=== PATIENT | male | born 2000 | race Two or more races ===

== ENCOUNTER 2024-10-31 18:38 | Inpatient (IN) | payer MEDICAID, OTHER ==
[~2024-10-31] VITALS: Ht 170.2 cm; Wt 67.5 kg
[2024-10-31 19:22] LABS: HEMATOCRIT 50.3 % (41-53); HEMOGLOBIN 17.2 g/dL (13.5-17.5); MEAN CORPUSCULAR HEMOGLOBIN 33.1 pg (26.0-34.0); MEAN CORPUSCULAR HGB CONC 34.2 G/dL (31.0-37.0); MEAN CORPUSCULAR VOLUME 97 fL (80-100); NEUTROPHILS % (AUTO) 77.2 % (40.0-70.0); PLATELET COUNT (AUTO) 349 K/uL (150-450); RED CELL DISTRIBUTION WIDTH 12.3 % (11.5-14.5); WHITE BLOOD COUNT (AUTO) 10.2 K/uL (4.5-11.0)
[2024-10-31 19:23] LABS: BASOPHILS % (AUTO) 0.5 % (0.0-2.0); EOSINOPHILS % (AUTO) 0 % (1.0-6.0); LYMPHOCYTES # (AUTO) 1.8 K/uL (1.0-4.8); LYMPHOCYTES % (AUTO) 17.3 % (22.0-44.0); MONOCYTES # (AUTO) 0.5 K/uL (0.1-1.0); NEUTROPHILS # (AUTO) 7.9 K/uL (1.8-7.7)
[2024-10-31 19:29] LABS: COVID AG,FIA SOURCE NASAL SWAB
[2024-10-31 19:36] LABS: ANION GAP 10 mmol/L (8-16); CALCIUM, TOTAL 8.9 mg/dL (8.8-10.5); CARBON DIOXIDE 28 mmol/L (22-29); CHLORIDE 104 mmol/L (98-107); CREATININE 1.02 mg/dL (0.60-1.30); GLOMERULAR FILTR. RATE CALC > 60 mL/min (>60); GLUCOSE,RANDOM 115 mg/dL (70-110); POTASSIUM 3.9 mmol/L (3.5-5.1); SODIUM SERUM 142 mmol/L (136-145); UREA NITROGEN, BLOOD 7 mg/dL (7-18)
[2024-10-31 19:50] LABS: ALCOHOL, BLOOD (SERUM) 295 mg/dL (0-10)
[2024-10-31] MEDS: LORazepam 2 MG TABLET PO ONE (19:54)
[2024-10-31] MEDS: HALOPERIDOL 5 MG TABLET PO ONE (19:55)
[2024-10-31 19:58] LABS: SARS-COV2 (COVID) ANTIGEN,FIA Negative (Negative)
[2024-10-31] MEDS: DiphenhydrAMINE HCL 50 MG/ML VIAL IM ONE (20:02)
[2024-10-31] MEDS: LORazepam 2 MG/ML VIAL IM ONE (20:02)
[2024-10-31] MEDS: HALOPERIDOL LACTATE 5 MG/ML VIAL IM ONE (20:02)
[2024-10-31 22:34] LABS: AMPHET/METH SCREEN,URINE NEGATIVE (NEGATIVE); BARBITURATE SCREEN, URINE NEGATIVE (NEGATIVE); BENZODIAZEPINES SCREEN,URINE NEGATIVE (NEGATIVE); CANNABINOID SCREEN,URINE POSITIVE (NEGATIVE); COCAINE SCREEN,URINE POSITIVE (NEGATIVE); METHADONE SCREEN, URINE NEGATIVE (NEGATIVE); OPIATE SCREEN,URINE NEGATIVE (NEGATIVE); PHENCYCLIDINE SCREEN,URINE NEGATIVE (NEGATIVE)
[2024-10-31 22:35] LABS: ALCOHOL, URINE DRUG SCREEN POSITIVE (NEGATIVE)
[2024-10-31] MEDS ORDERED: HALOPERIDOL 5 MG TABLET PO PRN (23:15)
[2024-11-01 01:11] VITALS: O2SAT 96
[2024-11-01 02:47] VITALS: BP 131/60; PULSE 100; RESP 18; TEMP 98.2; O2SAT 99
[2024-11-01] MEDS ORDERED: INFLUENZA VIRUS VACCINE TVS (6MO+) 2024-25/PF 45 MCG/0.5 ML SYRINGE IM. ONE (03:00)
[2024-11-01] MEDS ORDERED: PETROLATUM,WHITE 28 GM JELLY TP PRN (06:30)
[2024-11-01] MEDS ORDERED: NICOTINE 14 MG/24 HOUR PATCH TD PRN (06:30)
[2024-11-01] MEDS ORDERED: MAGNESIUM HYDROXIDE SUSPENSION 30 ML UDCUP PO PRN (06:30)
[2024-11-01] MEDS ORDERED: ALBUTEROL SULFATE HFA 90 MCG/PUFF 8 GM INHALER IH PRN (06:30)
[2024-11-01] MEDS ORDERED: LOPERAMIDE HCL 2 MG CAPSULE PO PRN (06:30)
[2024-11-01] MEDS ORDERED: ACETAMINOPHEN 325 MG TABLET PO PRN (06:30)
[2024-11-01] MEDS ORDERED: CloNIDine HCL 0.1 MG TABLET PO PRN (06:30)
[2024-11-01] MEDS ORDERED: IBUPROFEN 400 MG TABLET PO PRN (06:30)
[2024-11-01] MEDS ORDERED: GuaiFENesin/D-METHORPHAN [SUGAR-FREE] 200-20MG/10 ML SYRUP UDCUP PO PRN (06:30)
[2024-11-01] MEDS ORDERED: MAG HYDROX/ALUMINUM HYD/SIMETH ES 30 ML SUSPENSION UDCUP PO PRN (06:30)
[2024-11-01] MEDS ORDERED: DOCUSATE SODIUM 100 MG CAPSULE PO PRN (06:30)
[2024-11-01 08:00] VITALS: BP 132/79; PULSE 103; RESP 18; TEMP 98; O2SAT 98
[2024-11-01] MEDS: ONDANSETRON 4 MG TABLET PO PRN (09:21)
[2024-11-01 20:06] VITALS: BP 142/82; PULSE 92; RESP 16; TEMP 96.3; O2SAT 95
[2024-11-01] MEDS: ZOLPIDEM TARTRATE 10 MG TABLET PO PRN (21:05)
[2024-11-01] MEDS: LORazepam 2 MG TABLET PO PRN (21:05)
[2024-11-02 08:25] VITALS: BP 137/90; PULSE 93; RESP 16; TEMP 98.1; O2SAT 96
[2024-11-02 09:20] LABS: HEMOGLOBIN A1C 4.7 % (3.8-5.6)
[2024-11-02 09:22] LABS: CHOL/HDL RATIO 1.8 (4.2-7.3); THYROID STIMULATING HORMONE 2.13 uIU/mL (0.36-3.74)
[2024-11-02 20:00] VITALS: BP 136/88; PULSE 84; RESP 17; TEMP 98; O2SAT 96
[2024-11-03 08:40] VITALS: BP 137/78; PULSE 101; RESP 17; TEMP 98.4; O2SAT 96
== END 2024-11-03 14:44 | disposition home or self-care (01) | DRG 751 ==
LOC: EMS 18:38 → B3A 23:40
PROVIDERS: ADMIT Psychiatry & Neurology Psychiatry; ATTEND Psychiatry & Neurology Psychiatry
PROC: GZHZZZZ Group Psychotherapy (ICD-10-PCS; principal; 2024-11-01)
DX: F29 Unspecified psychosis not due to a substance or known physiological condition (principal); F20.0 Paranoid schizophrenia; R45.851 Suicidal ideations; F10.10 Alcohol abuse, uncomplicated; R73.9 Hyperglycemia, unspecified; Z20.822 Contact with and (suspected) exposure to COVID-19; F31.9 Bipolar disorder, unspecified; F12.159 Cannabis abuse with psychotic disorder, unspecified; F14.159 Cocaine abuse with cocaine-induced psychotic disorder, unspecified; Y90.8 Blood alcohol level of 240 mg/100 ml or more
CPT/HCPCS: 80048; 80061; 80307; 83036; 84443; 85025; 94640; 99291; G0480; Q0162